=== PATIENT | female | born 2000 | race Caucasian/White ===

== ENCOUNTER → 2025-05-12 10:14 | Outpatient (CLI) | payer OTHER, SELFPAY ==
--- NOTE | 2025-05-12 10:16 | DI.US.S_ITS ---
PROCEDURE: US ABDOMEN LIMITED INDICATIONS: elevated liver enzymes TECHNIQUE: Real-time scanning was performed of the abdominal and retroperitoneal organs, with image documentation. COMPARISON: None. FINDINGS: Liver: The liver is echogenic suggesting fatty infiltration. Focal fatty sparing is present the gallbladder fossa Gallbladder: No gallstones. No wall thickening. No pericholecystic edema. Negative sonographic Kenney's sign. Biliary ducts: Intrahepatic bile ducts are non-dilated. Extrahepatic bile duct caliber measures 4 mm. Normal is 6-7 mm or less in diameter, or 10 mm or less post-cholecystectomy. Pancreas: Visualized portions of the pancreas are sonographically normal. Miscellaneous: No free abdominal fluid. IMPRESSION: No cholelithiasis or findings to suggest choledocholithiasis or acute cholecystitis. Increased hepatic echogenicity noted likely related to fatty infiltration of the liver but other sources of hepatocellular disease cannot be excluded. Dictated by: Dominga Ferrell M.D. on 05/12/2025 at 11:56 Approved by: Dominga Ferrell M.D. on 05/12/2025 at 11:58
== END ==
LOC: US 10:15
PROVIDERS: PCP Nurse Practitioner Family; Referring Provider Nurse Practitioner Family; Visit Provider Nurse Practitioner Family
DX: E28.2 Polycystic ovarian syndrome (principal); R79.89 Other specified abnormal findings of blood chemistry
CPT/HCPCS: 76705

== ENCOUNTER → 2025-05-25 10:55 | Outpatient (CLI) | payer OTHER, SELFPAY ==
[2025-05-27 11:12] LABS: Trichomoas vaginalis Negative (Negative)
== END ==
PROVIDERS: PCP Nurse Practitioner Family; Visit Provider Obstetrics & Gynecology
DX: Z11.3 Encounter for screening for infections with a predominantly sexual mode of transmission (principal); N89.8 Other specified noninflammatory disorders of vagina
CPT/HCPCS: 87480; 87491; 87510; 87563; 87591; 87660

== ENCOUNTER → 2025-10-12 08:48 | Outpatient (CLI) | payer OTHER, SELFPAY ==
[2025-10-12 09:20] LABS: Hematocrit 41.3 % (36-46); Hemoglobin 14.3 g/dL (12.0-16.0); Mean Corpuscular HGB Conc 34.6 % (30-36); Mean Corpuscular Hemoglobin 29.9 PG (26-34); Mean Corpuscular Volume 86.4 fL (80-100); Platelet Count 324 X10^3/uL (150-400)
[2025-10-12 09:26] LABS: Hemoglobin A1C% w Est Avg Glu 5.4 % (4.0-6.0)
[2025-10-12 09:39] LABS: Eosinophils Percent Manual 2.0 % (2-4); Lymphocytes Percent Manual 46.0 % (25-45); Monocytes Percent Manual 2.0 % (2-11); Neutrophils Absolute Manual 4100 /uL (3000-5900); Segmented Neutrophils Percent 50.0 % (38-70); Total Cells Counted 100
[2025-10-12 09:40] LABS: RBC Morphology Normal Morphology
[2025-10-12 09:48] LABS: Alanine Aminotransferase 35 IU/L (<35); Albumin 4.8 g/dL (3.5-5.0); Albumin Globulin Ratio 1.4 (1.0-2.8); Alkaline Phosphatase 100 U/L (38-126); Blood Urea Nitrogen 8 mg/dL (7-17); Calcium 9.6 mg/dL (8.4-10.2); Carbon Dioxide 21 mmol/L (22-32); Chloride 106 mmol/L (98-107); Cholesterol 223 mg/dL (140-199); Estimated Glomerular Filt Rate > 60 mL/min (>60); Globulin 3.4 g/dL (1.7-4.1); Glucose 119 mg/dL (70-99); HDL Cholesterol 44 mg/dL (40-60); HEMOLYSIS < 15 (0-50); Potassium 4.0 mmol/L (3.4-5.1); Sodium 141 mmol/L (137-145); Total Protein 8.2 g/dL (6.3-8.2)
[2025-10-12 09:57] LABS: Triglycerides 905 mg/dL (35-150)
[2025-10-12 10:21] LABS: TSH w/ Reflex to FT4 2.15 uIU/mL (0.47-4.68)
== END ==
PROVIDERS: PCP Student in an Organized Health Care Education/Training Program; Referring Provider Student in an Organized Health Care Education/Training Program; Visit Provider Student in an Organized Health Care Education/Training Program
DX: E28.2 Polycystic ovarian syndrome (principal); R63.5 Abnormal weight gain; N94.9 Unspecified condition associated with female genital organs and menstrual cycle
CPT/HCPCS: 36415; 80053; 80061; 82672; 83036; 84402; 84403; 84443; 85025